=== PATIENT | female | born 1955 | race Caucasian/White ===

== ENCOUNTER 2023-12-25 15:00 | Emergency (ER) | payer MEDICARE, OTHER | END 2023-12-25 15:59 | disposition home or self-care (01) | LOC: BURERS 15:00 | DX: S90.121A Contusion of right lesser toe(s) without damage to nail, initial encounter (principal); M79.671 Pain in right foot; E78.5 Hyperlipidemia, unspecified; I10 Essential (primary) hypertension; Z79.899 Other long term (current) drug therapy; X58.XXXA Exposure to other specified factors, initial encounter ==